=== PATIENT | female | born 1945 | race Hispanic/Latino ===

== ENCOUNTER 2017-11-12 08:43 | Day surgery (SDC) | payer MEDICARE ==
[2017-11-12 09:47] LABS: Basophils # (Auto) 0.1 K/mm3 (0.0-0.1); Basophils % (Auto) 1.2 % (0.0-1.8); Eosinophils # (Auto) 0.1 K/mm3 (0.0-0.4); Eosinophils % (Auto) 2.2 % (0.0-4.3); Hematocrit 40.6 % (30.3-42.9); Hemoglobin 13.3 gm/dl (10.1-14.3); Lymphocytes # (Auto) 1.6 K/mm3 (1.2-5.4); Lymphocytes % (Auto) 31.6 % (13.4-35.0); Mean Corpuscular HGB Conc 33 % (30-34); Mean Corpuscular Hemoglobin 28 pg (28-32); Mean Corpuscular Volume 85 fl (79-97); Monocytes # (Auto) 0.5 K/mm3 (0.0-0.8); Monocytes % (Auto) 9.4 % (0.0-7.3); Platelet Count 208 K/mm3 (140-440); Red Blood Count 4.77 M/mm3 (3.65-5.03); Red Cell Distribution Width 14.4 % (13.2-15.2)
--- NOTE | 2017-11-12 09:50 | Anesthesia Consultation ---
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
--- NOTE | 2017-11-12 09:51 | Anesthesia Day of Surgery ---
Anesthesia Day of Surgery - Day of Surgery Patient Examined: Yes Patient H&P Reviewed: Yes Patient is NPO: Yes
[2017-11-12] MEDS ORDERED: DIPRIVAN 10 MG/ML IV ONE ×2 (09:55→09:56)
[2017-11-12 09:58] LABS: INR 0.92 (0.87-1.13)
[2017-11-12 09:59] LABS: Partial Thromboplastin Time 30.6 Sec. (24.2-36.6)
[2017-11-12] MEDS ORDERED: NACL 0.9% 500 ML 500 ML IV SCH (10:00)
[2017-11-12] MEDS ORDERED: HURRICAINE ONE 20% TOPICAL SPRAY MM NR (11:00)
[2017-11-12 13:57] VITALS: BP 164/73
== END 2017-11-12 14:19 | disposition home or self-care (01) ==
LOC: CATHLABREC 08:43 → EDSTATUS 09:30 → CATHLABREC 14:19
DX: I34.0 Nonrheumatic mitral (valve) insufficiency (principal); I10 Essential (primary) hypertension; E66.01 Morbid (severe) obesity due to excess calories; G43.909 Migraine, unspecified, not intractable, without status migrainosus; Z87.891 Personal history of nicotine dependence; Z86.73 Personal history of transient ischemic attack (TIA), and cerebral infarction without residual deficits; Z88.5 Allergy status to narcotic agent; Z79.01 Long term (current) use of anticoagulants; Z68.36 Body mass index [BMI] 36.0-36.9, adult
CPT/HCPCS: 36415; 80048; 85025; 85610; 85730; 93312; 93320; 93325; J2704; J7040